=== PATIENT | female | born 1985 | race Hispanic/Latino ===

== ENCOUNTER 2024-03-30 19:01 | Emergency (ER) | payer SELFPAY ==
[2024-03-30] MEDS ORDERED: Ketorolac Tromethamine 30 MG (1 mL) VIAL ONE (19:46)
[2024-03-30] MEDS ORDERED: Famotidine/PF 20 mg/2ml Vial ONE (19:51)
[2024-03-30 20:00] LABS: #Basophils 0.03 10x3/uL (0.0-0.2); %Basophils 0.4 % (0.0-1.0); %Eosinophils 0.6 % (0.0-10.0); %Lymphocytes 38.3 % (21.0-51.0); %Monocytes 8.5 % (0.0-10.0); %Neutrophils 52.1 % (42.0-75.0); Hematocrit 37.1 % (36.0-47.0); Hemoglobin 11.7 g/dL (12.0-16.0); Mean Corpuscular HGB CONC 31.5 g/dL (32.0-36.0); Mean Platelet Volume 11.4 fL (7.4-10.4); Platelet Count 316 10x3/uL (130-400); RBC Distribution Width 14.2 % (11.5-14.5); Red Blood Cell (RBC) Count 5.08 mill/uL (4.20-5.40)
[2024-03-30 20:04] LABS: BHCG - Serum Negative (NEGATIVE); Pregs Control Background? CLEAR/WHITE (CLR/WHITE); Pregs Control Bar Appear? YES (CONTROL BAR)
[2024-03-30 20:11] LABS: ALT (SGPT) 11 U/L (8-55); AST (SGOT) 14 U/L (5-34); Albumin 3.6 g/dL (3.5-5.0); Alkaline Phosphatase 50 U/L (40-110); Anion Gap 16 mmol/L (10-20); BUN (Urea Nitrogen) 12 mg/dL (7.0-18.7); Bilirubin, Total 0.3 mg/dL (0.2-1.2); Calc. Creatinine Clearance 0 mL/min (70-130); Calcium 8.6 mg/dL (7.8-10.44); Carbon Dioxide 21 mmol/L (22-29); Chloride 106 mmol/L (98-107); Estimated GFR 101; Globulin 3.7 g/dL (2.4-3.5); Glucose 112 mg/dL (70-105); Lipase 34 U/L (8-78); Potassium 3.6 mmol/L (3.5-5.1); Protein, Total 7.3 g/dL (6.0-8.3); Sodium 139 mmol/L (136-145)
[2024-03-30 20:15] LABS: Troponin I Less than 0.010 ng/mL (< 0.028)
[2024-03-30 20:20] LABS: Microcytosis SLIGHT = 6-15 cells HPF (0-5); Platelet Adequacy Comment Platelets Normal
== END 2024-03-30 21:33 | disposition home or self-care (01) ==
LOC: ERS 19:01
DX: R07.2 Precordial pain (principal)
CPT/HCPCS: 71045; 80053; 83690; 83880; 84484; 84703; 85025; 85379; 93005; 96374; 96375; J1885; J3490